=== PATIENT | male | born 2000 | race Hispanic/Latino ===

== ENCOUNTER 2019-12-02 15:58 | Emergency (ER) | payer OTHER ==
[2019-12-02] MEDS ORDERED: TETRACAINE HCL 0.5% 4ML OPTH ONE (16:46)
[2019-12-02] MEDS ORDERED: FLUORESCEIN SODIUM 1 MG/WRAP ONE (16:47)
--- NOTE | 2019-12-02 17:20 | ER ---
Nurse's Notes [facility] Name: Niko Leung Age: 19 yrs Sex: Male : 2000 Arrival Date: 12/02/2019 Time: 16:02 Bed 6 Private MD: Diagnosis: Conjunctivitis-right eye Presentation: 12/01 16:14 Chief complaint: Patient states: Right eye redness irritation since last night. Painful ll1 today. No fever. Coronavirus screen: Proceed with normal triage. Patient denies a cough. Patient denies shortness of breath or difficulty breathing. Patient denies measured and/or subjective temperature greater than 100.4F prior to today's visit. Patient denies travel on a cruise ship or to a country the [facility] currently lists as an affected area. Patient denies contact with known and/or suspected case of COVID-19. Ebola Screen: Patient denies travel to an Ebola-affected area in the 21 days before illness onset. Mechanism of Injury: No Mechanism of Injury. The patient denies any loss of vision. Initial Sepsis Screen: Does the patient meet any 2 criteria? HR > 90 bpm. No. Patient's initial sepsis screen is negative. Does the patient have a suspected source of infection? No. Patient's initial sepsis screen is negative. Risk Assessment: Do you want to hurt yourself or someone else? Patient reports no desire to harm self or others. Onset of symptoms was December 01, 2019. 16:14 Method Of Arrival: Ambulatory ll1 16:14 Acuity: YVETTE 4 ll1 Triage Assessment: 16:15 General: Appears in no apparent distress. comfortable, Behavior is calm, cooperative, bp appropriate for age. Pain: Complains of pain in right eye. EENT: Sclera/Cornea are reddened in right eye. Neuro: No deficits noted. Cardiovascular: No deficits noted. Respiratory: No deficits noted. GI: No signs and/or symptoms were reported involving the gastrointestinal system. : No signs and/or symptoms were reported regarding the genitourinary system. Derm: No deficits noted. Musculoskeletal: No deficits noted. Historical: - Allergies: 16:17 No Known Allergies; ll1 - PMHx: 16:17 None; ll1 - Immunization history:: Flu vaccine is not up to date. - Social history:: Smoking status: Patient denies any tobacco usage or history of. Patient/guardian denies using alcohol, street drugs, IV drugs, tobacco products. Screenin:45 Abuse screen: Denies threats or abuse. Denies injuries from another. Nutritional bp screening: No deficits noted. Tuberculosis screening: No symptoms or risk factors identified. Fall Risk None identified. Assessment: 16:17 General: SEE TRIAGE NOTE. bp 17:26 Reassessment: PT D/C HOME AMBULATORY, DX WITH BACTERIAL CONJUNCTIVITIS. bp Vital Signs: 16:14 BP 165 / 83; Pulse 120; Resp 15; Temp 98.7; Pulse Ox 98% ; Weight 47.63 kg; Height 5 ll1 ft. 4 in. (162.56 cm); Pain 5/10; 17:26 BP 145 / 72; Pulse 82; Resp 16; Temp 98.7; Pulse Ox 98% ; bp 16:14 Body Mass Index 18.02 (47.63 kg, 162.56 cm) ll1 Visual Acuity: 16:51 Left Eye Visual acuity 20/20, ; Right Eye Visual acuity 20/200, ; Both Eyes Visual dh3 acuity 20/20; Without Lenses; pt wearing perscription contact in left eye only ED Course: 16:02 Patient arrived in ED. am2 16:16 Triage completed. ll1 16:16 Corbin Figueroa, ILANA is Primary Nurse. bp 16:17 Arm band placed on right wrist. Patient placed in an exam room, on a stretcher. ll1 16:19 Twin Garcia PA is PHCP. cp 16:19 Maurisio Méndez MD is Attending Physician. cp 16:45 Patient has correct armband on for positive identification. Bed in low position. Call bp light in reach. Side rails up X2. 17:18 Gene Fink MD is Referral Physician. cp 17:26 No provider procedures requiring assistance completed. Patient did not have IV access bp during this emergency room visit. Administered Medications: 16:43 Drug: Tetracaine Drops 0.5 % 1 drops Route: Ophthalmic; Site: both eyes; bp Outcome: 17:19 Discharge ordered by . cp 17:26 Discharged to home ambulatory. bp 17:26 Condition: stable 17:26 Discharge instructions given to patient, Instructed on discharge instructions, follow up and referral plans. medication usage, Demonstrated understanding of instructions, follow-up care, medications, Prescriptions given X 1. 17:27 Patient left the ED. bp Signatures: Twin Garcia PA PA cp Moreno, Amanda 2 Tameka Gonsalez 3 Corbin Figueroa RN RN bp Helen Arias RN RN ll1
--- NOTE | 2019-12-02 17:20 | EDPHYS ---
Physician Documentation [facility] Name: Niko Leung Age: 19 yrs Sex: Male : 2000 Arrival Date: 12/02/2019 Time: 16:02 Bed 6 Private MD: ED Physician Maurisio Méndez HPI: 12/01 16:49 This 19 yrs old Male presents to ER via Ambulatory with complaints of Eye Pain.cp 16:49 The patient is experiencing pain, redness, to the right eye, caused by an unknown cp mechanism. Onset: The symptoms/episode began/occurred this morning. Duration: the symptoms are continuous. Associated signs and symptoms: Pertinent positives: sensitivity to light, Pertinent negatives: fever. Patient wears soft contacts. Historical: - Allergies: 16:17 No Known Allergies; ll1 - PMHx: 16:17 None; ll1 - Immunization history:: Flu vaccine is not up to date. - Social history:: Smoking status: Patient denies any tobacco usage or history of. Patient/guardian denies using alcohol, street drugs, IV drugs, tobacco products. ROS: 16:51 Constitutional: Negative for body aches, chills, fever, poor PO intake. cp 16:51 Eyes: Positive for pain, photophobia, redness, of the right eye, Negative for foreign body sensation, matting. 16:51 ENT: Negative for drainage from ear(s), ear pain, sore throat, difficulty swallowing, difficulty handling secretions. 16:51 Respiratory: Negative for cough. 16:51 Skin: Negative for rash. 16:51 Neuro: Negative for headache. 16:51 All other systems are negative. Exam: 17:14 Visual Acuity: I have reviewed the nursing documentation. cp 17:14 Head/Face: Normocephalic, atraumatic. 17:14 Constitutional: The patient appears in no acute distress, alert, awake, non-toxic, well developed, well nourished. 17:14 Eyes: Periorbital structures: appear normal, Pupils: equal, round, and reactive to light and accomodation, Extraocular movements: intact throughout, Conjunctiva: injected, in the right eye, Corneas: abrasion, is not appreciated, foreign body, is not appreciated, a fluorescein strip employed to appreciate the findings, Anterior chamber: normal, Lids and lashes: appear normal, on the right, Examination of the other eye reveals no obvious gross abnormality. 17:14 ENT: External ear(s): are unremarkable, Nose: is normal, Mouth: is normal. 17:14 Cardiovascular: Rate: tachycardic. 17:14 Respiratory: the patient does not display signs of respiratory distress, Respirations: normal. Vital Signs: 16:14 BP 165 / 83; Pulse 120; Resp 15; Temp 98.7; Pulse Ox 98% ; Weight 47.63 kg; Height 5 ll1 ft. 4 in. (162.56 cm); Pain 5/10; 17:26 BP 145 / 72; Pulse 82; Resp 16; Temp 98.7; Pulse Ox 98% ; bp 16:14 Body Mass Index 18.02 (47.63 kg, 162.56 cm) ll1 Visual Acuity: 16:51 Left Eye Visual acuity 20/20, ; Right Eye Visual acuity 20/200, ; Both Eyes Visual dh3 acuity 20/20; Without Lenses; pt wearing perscription contact in left eye only MDM: 16:26 Patient medically screened. cp 17:16 Differential diagnosis: Corneal abrasion of right eye. Corneal ulcer of right eye. cp Foreign body in right eye. Infectious conjunctivitis in right eye. Data reviewed: vital signs, nurses notes, and as a result, I will discharge patient. Counseling: I had a detailed discussion with the patient and/or guardian regarding: the historical points, exam findings, and any diagnostic results supporting the discharge/admit diagnosis, to return to the emergency department if symptoms worsen or persist or if there are any questions or concerns that arise at home. Response to treatment: the patient's symptoms have mildly improved after treatment, and as a result, I will discharge patient. 12/01 16:27 Order name: Visual Acuity; Complete Time: 16:53 cp 12/01 16:27 Order name: Eye Tray; Complete Time: 16:43 cp 12/01 16:27 Order name: Fluoresene Opth strip; Complete Time: 16:43 cp Administered Medications: 16:43 Drug: Tetracaine Drops 0.5 % 1 drops Route: Ophthalmic; Site: both eyes; bp Disposition: 17:30 Chart complete. cp 18:52 Co-signature as Attending Physician, Maurisio Méndez MD I agree with the assessment and kdr plan of care. Disposition: 12/02/19 17:19 Discharged to Home. Impression: Conjunctivitis - right eye. - Condition is Stable. - Discharge Instructions: Bacterial Conjunctivitis. - Prescriptions for Vigamox 0.5 % Ophthalmic Drops - instill 1 drop by OPHTHALMIC route every 8 hours for 7 days; 5 milliliter. - Medication Reconciliation Form, Thank You Letter, Antibiotic Education, Prescription Opioid Use form. - Follow up: Gene Fink MD; When: 2 - 3 days; Reason: symptoms continue. - Problem is new. - Symptoms have improved. Signatures: Maurisio Méndez MD MD [facility] Twin Garcia PA PA cp Corbin Figueroa, RN RN bp Helen Arias RN RN ll1 Corrections: (The following items were deleted from the chart) 17:27 17:19 12/02/2019 17:19 Discharged to Home. Impression: Conjunctivitis - right eye. bp Condition is Stable. Forms are Medication Reconciliation Form, Thank You Letter, Antibiotic Education, Prescription Opioid Use. Follow up: Gene Fink; When: 2 - 3 days; Reason: symptoms continue. Problem is new. Symptoms have improved. cp
[2019-12-02 17:43] VITALS: TEMP 98.7; O2SAT 98
[2019-12-02 17:45] VITALS: BP 145/72
== END 2019-12-02 17:27 | disposition home or self-care (01) ==
LOC: ER 15:58
DX: H10.9 Unspecified conjunctivitis (principal)
CPT/HCPCS: 99283